=== PATIENT | female | born 1970 | race Caucasian/White ===

== ENCOUNTER 2021-04-12 21:51 | Emergency (ER) | payer SELFPAY ==
[~2021-04-12] VITALS: Ht 160 cm; Wt 46.7 kg
[2021-04-12] MEDS ORDERED: LIDOCAINE 4% PATCH TP SCH (22:30)
[2021-04-12] MEDS ORDERED: KETOROLAC TROMETHAMINE 60 MG/2 ML VIAL IM ONE (22:30)
[2021-04-13] MEDS ORDERED: AUGMENTIN 875-1 EACH PO (00:42)
[2021-04-13] MEDS ORDERED: LIDOPATCH1 EACH TOP (02:31)
[2021-04-13] MEDS ORDERED: ULTRAM 50MG50 MG PO (02:31)
== END 2021-04-13 02:30 | disposition home or self-care (01) ==
LOC: ER 22:43
DX: R06.00 Dyspnea, unspecified (principal); R50.9 Fever, unspecified; R07.89 Other chest pain; J18.9 Pneumonia, unspecified organism; F41.9 Anxiety disorder, unspecified; G40.909 Epilepsy, unspecified, not intractable, without status epilepticus
CPT/HCPCS: 71045; 71046; 87400; 93005; 99283; J1885